=== PATIENT | female | born 1985 | race Caucasian/White ===

== ENCOUNTER 2017-11-12 15:05 | Emergency (ER) | payer MEDICAID ==
[~2017-11-12] VITALS: Ht 160 cm; Wt 52.2 kg
[2017-11-12 15:55] VITALS: BP 119/66
[2017-11-12] MEDS ORDERED: EPINEPHrine HCL 1 MG/1 ML AMP SC ONE (16:30)
[2017-11-12] MEDS ORDERED: diphenhdrAMINE HCL 50 MG/1 ML VL IM ONE (16:30)
== END 2017-11-12 17:20 | disposition home or self-care (01) ==
LOC: ER 15:05
DX: T78.40XA Allergy, unspecified, initial encounter (principal); F17.210 Nicotine dependence, cigarettes, uncomplicated
CPT/HCPCS: 96372; 99284; J0171; J1200

== ENCOUNTER 2020-01-25 05:47 | Emergency (ER) | payer MEDICAID ==
[~2020-01-25] VITALS: Ht 157.5 cm; Wt 45.4 kg
[~2020-01-25 05:47] MED LIST: CLIN300C8 PO; LEVO500T21 PO
[2020-01-25 07:09] LABS: Basophils # (auto) 0.1 10 ^3/uL (0-0.2); Eosinophils # (auto) 0.1 10 ^3/uL (0-0.8); Eosinophils % (auto) 1.3 % (0.0-7.0); Hematocrit 49.6 % (36.0-46.0); Hemoglobin 16.6 g/dL (12.2-16.2); Lymphocytes # (auto) 3.3 10 ^3/uL (0.4-5.4); Lymphocytes % (auto) 31.2 % (10.0-50.0); Mean Corpuscular Hemoglobin 28.4 pg (28.0-32.0); Mean Corpuscular Hgb Conc. 33.5 g/dL (32.0-36.0); Mean Corpuscular Volume 84.9 fL (80.0-100.0); Monocytes # (auto) 0.5 10 ^3/uL (0-1.3); Monocytes % (auto) 4.5 % (0.0-12.0); Neutrophils # (auto) 6.6 10 ^3/uL (1.6-8.6); Nucleated Red Blood Cells % 0.2 %; Platelet Count (auto) 282 10^3/uL (140-450); Red Blood Cells 5.85 10^6/uL (4.0-5.20); Red Cell Distribution Width 13.5 % (11.8-14.3); White Blood Cell 10.6 10^3/uL (4.4-10.8)
[2020-01-25 07:18] LABS: Albumin 3.2 g/dL (3.4-5.0); Anion Gap 8 (5-15); Blood Urea Nitrogen 14 mg/dL (7-18); Calcium 8.6 mg/dL (8.5-10.1); Carbon Dioxide 26 mmol/L (21-32); Chloride 105 mmol/L (98-107); Glucose 124 mg/dL (74-106); Potassium 3.7 mmol/L (3.5-5.1); Sodium 139 mmol/L (136-145)
[2020-01-25 07:20] LABS: Alanine Aminotransferase 81 U/L (13-56); GFR African American 82 mL/min; GFR Non-African American 68 mL/min
[2020-01-25 07:26] LABS: Alkaline Phosphatase 138 U/L (45-117); Aspartate Aminotransferase 54 U/L (15-37); Bilirubin, Total 0.4 mg/dL (0.2-1.0); Total Protein 8.1 g/dL (6.4-8.2)
[2020-01-25 08:52] LABS: Urine Bacteria MANY /hpf (None Seen); Urine Blood 2+ /uL (Negative); Urine Mucus FEW (None Seen); Urine Specific Gravity 1.028 (1.001-1.035); Urine WBC 21 /hpf (0 - 5)
[2020-01-25 12:00] VITALS: BP 103/56
[2020-01-25] MEDS ORDERED: cefTRIAXone SOD 1,000 MG VL ONE (12:41)
[2020-01-25] MEDS ORDERED: LIDOCAINE 1% HCL (LOCAL ANESTH.) INJ 20ML MDV ONE (12:42)
[2020-01-25] MEDS ORDERED: LIDOCAINE 1% HCL (LOCAL ANESTH.) INJ 20ML MDV IJ ONE (12:45)
[2020-01-25] MEDS ORDERED: cefTRIAXone 1GM/50ML D5W 50 ML IV ONE (12:45)
[2020-01-25] MEDS ORDERED: cefTRIAXone SOD 1,000 MG VL IM ONE (12:45)
== END 2020-01-25 13:24 | disposition home or self-care (01) ==
LOC: EDBD 05:47 → ER 05:47 → EDUNIT# 05:47 → ER 13:24
DX: T59.91XA Toxic effect of unspecified gases, fumes and vapors, accidental (unintentional), initial encounter (principal); N39.0 Urinary tract infection, site not specified; F19.10 Other psychoactive substance abuse, uncomplicated; Y92.89 Other specified places as the place of occurrence of the external cause
CPT/HCPCS: 36415; 71046; 80053; 81001; 83735; 84484; 84702; 85025; 93005; 96372; 99285; J0696; J2001

== ENCOUNTER 2020-02-14 20:54 | Emergency (ER) | payer MEDICAID ==
[~2020-02-14] VITALS: Ht 162.6 cm; Wt 52.2 kg
[2020-02-14 23:27] VITALS: BP 107/66
== END 2020-02-14 23:49 | disposition home or self-care (01) ==
LOC: ER 20:54
DX: K02.9 Dental caries, unspecified (principal); K04.7 Periapical abscess without sinus; F17.210 Nicotine dependence, cigarettes, uncomplicated; Z79.899 Other long term (current) drug therapy; Z91.013 Allergy to seafood
CPT/HCPCS: 70486

== ENCOUNTER 2020-05-28 21:44 | Emergency (ER) | payer MEDICAID ==
[~2020-05-28] VITALS: Ht 162.6 cm; Wt 54.4 kg
[2020-05-29] MEDS ORDERED: LORazepam 2MG/ML-1ML VIAL ONE (02:17)
[2020-05-29 02:45] VITALS: BP 106/62
== END 2020-05-29 03:01 | disposition home or self-care (01) ==
LOC: ER 21:46
DX: S81.812A Laceration without foreign body, left lower leg, initial encounter (principal); S70.12XA Contusion of left thigh, initial encounter; L03.116 Cellulitis of left lower limb; F17.210 Nicotine dependence, cigarettes, uncomplicated; F12.10 Cannabis abuse, uncomplicated; X58.XXXA Exposure to other specified factors, initial encounter; Y93.89 Activity, other specified; Y92.89 Other specified places as the place of occurrence of the external cause; Y99.8 Other external cause status
CPT/HCPCS: 73700